=== PATIENT | female | born 1975 | race Asian ===

== ENCOUNTER 2017-06-06 20:38 | Emergency (ER) | payer SELFPAY ==
[~2017-06-06] VITALS: Ht 160 cm; Wt 80.4 kg
[~2017-06-06 20:38] MED LIST: PRENTAB26 PO
[2017-06-06 20:42] VITALS: TEMP 37.1; Ht 160 cm; Wt 80.4 kg
[2017-06-06] MEDS ORDERED: SODIUM CHLORIDE 0.9% 500ML 500 ML IV STA (20:52)
[2017-06-06] MEDS ORDERED: ACETAMINOPHEN 325 MG TAB PO STA (20:52)
[2017-06-06 21:19] LABS: BASO % 0.6 %; BASO ABS # 0.03 K/uL (0-0.2); EOS % 2.9 %; EOS ABS # 0.16 K/uL (0-0.5); HEMATOCRIT 37.8 % (37-47); HEMOGLOBIN 12.9 g/dL (12.0-16.0); LYMPH % 30.8 %; LYMPH ABS # 1.68 K/uL (1.2-3.4); MEAN CELL VOLUME 88.3 fL (80-100); MEAN CORPUSCULAR HEMOGLOBIN 30.1 pg (25-34); MEAN CORPUSCULAR HGB CONC 34.1 g/dl (32-36); MONO % 8.3 %; MONO ABS # 0.45 K/uL (0.11-0.59); NEUT % 57.4 %; NEUT ABS # 3.13 K/uL (1.4-6.5); PLATELET COUNT 149 K/uL (130-400); RED CELL DISTRIBUTION WIDTH SD 41.9 fL (36.4-46.3); WHITE BLOOD COUNT 5.45 K/uL (4.8-10.8)
[2017-06-06 21:35] LABS: ALBUMIN 3.6 gm/dl (3.4-5.0); CALCIUM 8.2 mg/dl (8.5-10.1); CREATININE 0.67 mg/dl (0.60-1.20); POTASSIUM 3.2 mmol/L (3.5-5.1)
[2017-06-06 21:38] LABS: TOTAL PROTEIN 6.7 gm/dl (6.4-8.2)
--- NOTE | 2017-06-06 22:16 | DIAGNOSTIC IMAGING REPORT ---
ECTOPIC CLINICAL HISTORY: 8 weeks . Vaginal bleeding. COMPARISON STUDY: No previous studies for comparison. TECHNIQUE: Transabdominal and transvaginal sonography of the pelvis was performed. FINDINGS: The uterus measures 10 x 6.7 x 6.3 cm. Endometrium measures 2.4 cm in thickness. Intrauterine gestational sac is noted with a mean sac diameter of 2.18 cm. This contains a yolk sac that measures 0.33 cm and a pole with a crown-rump length of 0.56 cm. This corresponds to an estimated gestational age of 6 weeks and 2 days. heart rate is normal at 130 bpm. Right ovary measures 2.4 x 2.3 x 1.9 cm and the left ovary measures 2.7 x 2.3 x 3.3 cm and contains a suspected 2 cm corpus luteal cyst. IMPRESSION: 1. Single viable intrauterine gestation with normal heart rate of 130 bpm. 2. Estimated gestational age of 6 weeks and 2 days on this exam. 3. Left ovarian corpus luteal cyst measuring 2 cm. Electronically signed by: Reynaldo Blanc M.D. 06/06/2017 10:15 PM Dictated Date/Time: 06/06/2017 10:12 PM
[2017-06-06 22:38] VITALS: BP 111/60; PULSE 73; O2SAT 98
--- NOTE | 2017-06-06 23:37 | EMERGENCY ROOM VISIT NOTE ---
History Report prepared by Nenita: Porfirio Pantoja Under the Supervision of: Dr. Wesley Robin M.D. First contact with patient: 20:46 Chief Complaint: ABDOMINAL PAIN Stated Complaint: BELLY PAIN, POSSIBLY RELATED TO EARLY History of Present Illness The patient is a 42 year old female who presents to the Emergency Room with complaints of constant abdominal pain starting this afternoon around 1600 this afternoon. She states that she pain is a sharp pain in the middle of her abdomen. The patient states that she is currently , and her last period was April 08. She denies any diarrhea, fever, vomiting, vaginal bleeding, and vaginal discharge. She states that she has been urinating normally recently. The patient has 4 children, and she has a history of an elective as well as an ectopic . She has no chronic medical problems. Source of History: patient, spouse/significant other Onset: 1600 Position: abdomen Quality: sharp Timing: constant Associated Symptoms: No fevers, No vomiting, No diarrhea Review of Systems See HPI for pertinent positives & negatives. A total of 10 systems reviewed and were otherwise negative. Past Medical & Surgical Medical Problems: (1) 33 weeks gestation of (2) Fall (3) Injury of sacrum (4) Personality disorder (5) Right groin hernia Surgical Problems: (1) Previous section (2) S/P repeat low transverse Family History Patient reports no known family medical history. Social History Smoking Status: Never Smoker Drug Use: none Marital Status: Housing Status: lives with family Current/Historical Medications Scheduled Multivit/Min/Iron/Fol Ac/Pren ( Vitamin), 1 TAB PO DAILY Allergies Coded Allergies: No Known Allergies (Verified , 06/06/17) Physical Exam Vital Signs Date Time Temp Pulse Resp B/P (MAP) Pulse Ox O2 Delivery O2 Flow Rate FiO2 06/06/17 22:38 73 18 111/60 98 06/06/17 20:42 37.1 86 18 103/71 98 Room Air Physical Exam Constitutional: Vital signs reviewed. Eyes: Pupils are equal round reactive to light. Conjunctiva are noninjected. ENT: Pharynx is clear without erythema or exudate. Mucous membranes are moist. Neck supple without meningeal signs. Respiratory: Clear to auscultation bilaterally. Breath sounds are equal bilaterally. Cardiovascular: Regular rate and rhythm. No rubs or gallops. GI: Suprapubic tenderness. No guarding. Soft, nondistended. Bowel sounds are present. Musculoskeletal: No peripheral edema. No lower extremity tenderness. Integumentary: No cyanosis. Neurological: The patient is awake and alert. No focal deficits. Psychiatric: Normal affect. Medical Decision & Procedures ER Provider Diagnostic Interpretation: Radiology results as stated below per my review and the radiologist's interpretation: ECTOPIC CLINICAL HISTORY: 8 weeks . Vaginal bleeding. COMPARISON STUDY: No previous studies for comparison. TECHNIQUE: Transabdominal and transvaginal sonography of the pelvis was performed. FINDINGS: The uterus measures 10 x 6.7 x 6.3 cm. Endometrium measures 2.4 cm in thickness. Intrauterine gestational sac is noted with a mean sac diameter of 2.18 cm. This contains a yolk sac that measures 0.33 cm and a pole with a crown-rump length of 0.56 cm. This corresponds to an estimated gestational age of 6 weeks and 2 days. heart rate is normal at 130 bpm. Right ovary measures 2.4 x 2.3 x 1.9 cm and the left ovary measures 2.7 x 2.3 x 3.3 cm and contains a suspected 2 cm corpus luteal cyst. IMPRESSION: 1. Single viable intrauterine gestation with normal heart rate of 130 bpm. 2. Estimated gestational age of 6 weeks and 2 days on this exam. 3. Left ovarian corpus luteal cyst measuring 2 cm. Electronically signed by: Reynaldo Blanc M.D. 06/06/2017 10:15 PM Dictated Date/Time: 06/06/2017 10:12 PM Laboratory Results 06/06/17 21:10 Red Blood Count 4.28, Mean Corpuscular Volume 88.3, Mean Corpuscular Hemoglobin 30.1, Mean Corpuscular Hemoglobin Concent 34.1, Mean Platelet Volume 10.0, Neutrophils (%) (Auto) 57.4, Lymphocytes (%) (Auto) 30.8, Monocytes (%) (Auto) 8.3, Eosinophils (%) (Auto) 2.9, Basophils (%) (Auto) 0.6, Neutrophils # (Auto) 3.13, Lymphocytes # (Auto) 1.68, Monocytes # (Auto) 0.45, Eosinophils # (Auto) 0.16, Basophils # (Auto) 0.03 06/06/17 21:10 Test 06/06/17 21:08 06/06/17 21:10 Urine Color YELLOW Urine Appearance CLEAR (CLEAR) Urine pH 6.5 (4.5-7.5) Urine Specific [place] 1.027 (1.000-1.030) Urine Protein NEG (NEG) Urine Glucose (UA) 1+ (NEG) Urine Ketones NEG (NEG) Urine Occult Blood NEG (NEG) Urine Nitrite NEG (NEG) Urine Bilirubin NEG (NEG) Urine Urobilinogen NEG (NEG) Urine Leukocyte Esterase SMALL (NEG) Urine WBC (Auto) 5-10 /hpf (0-5) Urine RBC (Auto) 0-4 /hpf (0-4) Urine Hyaline Casts (Auto) 1-5 /lpf (0-5) Urine Epithelial Cells (Auto) >30 /lpf (0-5) Urine Bacteria (Auto) NEG (NEG) White Blood Count 5.45 K/uL (4.8-10.8) Red Blood Count 4.28 M/uL (4.2-5.4) Hemoglobin 12.9 g/dL (12.0-16.0) Hematocrit 37.8 % (37-47) Mean Corpuscular Volume 88.3 fL (80-100) Mean Corpuscular Hemoglobin 30.1 pg (25-34) Mean Corpuscular Hemoglobin Concent 34.1 g/dl (32-36) Platelet Count 149 K/uL (130-400) Mean Platelet Volume 10.0 fL (7.4-10.4) Neutrophils (%) (Auto) 57.4 % Lymphocytes (%) (Auto) 30.8 % Monocytes (%) (Auto) 8.3 % Eosinophils (%) (Auto) 2.9 % Basophils (%) (Auto) 0.6 % Neutrophils # (Auto) 3.13 K/uL (1.4-6.5) Lymphocytes # (Auto) 1.68 K/uL (1.2-3.4) Monocytes # (Auto) 0.45 K/uL (0.11-0.59) Eosinophils # (Auto) 0.16 K/uL (0-0.5) Basophils # (Auto) 0.03 K/uL (0-0.2) RDW Standard Deviation 41.9 fL (36.4-46.3) RDW Coefficient of Variation 13.0 % (11.5-14.5) Immature Granulocyte % (Auto) 0.0 % Immature Granulocyte # (Auto) 0.00 K/uL (0.00-0.02) Anion Gap 8.0 mmol/L (3-11) Est Creatinine Clear Calc Drug Dose 110.9 ml/min Estimated GFR () 126.5 Estimated GFR (Non- 109.2 BUN/Creatinine Ratio 11.3 (10-20) Calcium Level 8.2 mg/dl (8.5-10.1) Total Bilirubin 0.6 mg/dl (0.2-1) Direct Bilirubin 0.2 mg/dl (0-0.2) Aspartate Amino Transf (AST/SGOT) 30 U/L (15-37) Alanine Aminotransferase (ALT/SGPT) 58 U/L (12-78) Alkaline Phosphatase 48 U/L (45-117) Total Protein 6.7 gm/dl (6.4-8.2) Albumin 3.6 gm/dl (3.4-5.0) Lipase 136 U/L (73-393) Human Chorionic Gonadotropin, Quant 56386 mIU/mL Laboratory results as reviewed by me. Medications Administered Medications (Trade) Dose Ordered Sig/Hanny Route Start Time Stop Time Status Last Admin Dose Admin Acetaminophen (Tylenol Tab) 650 mg NOW STAT PO 06/06/17 20:52 06/06/17 20:55 DC 06/06/17 21:09 650 MG Sodium Chloride 500 ml @ 999 mls/hr Q31M STAT IV 06/06/17 20:52 06/06/17 21:22 DC 06/06/17 21:10 999 MLS/HR ED Course 2045: The patient was evaluated in room C3. A complete history and physical exam was performed. 2051: Sodium Chloride 500 ml @ 999 mls/hr IV, Tylenol 650mg PO 2221: I reevaluated the patient and discussed her test results. She is going to follow up with OB tomorrow. She will be discharged home. Medical Decision This is a 42-year-old female who presents with lower abdominal pain. Differential diagnosis includes ectopic , UTI, appendicitis, ovarian cyst, kidney stone. I did perform a limited focused review of portions of the patient's old chart on the electronic medical record. The patient had an ectopic in September 2007 with a wedge resection of the right cornua. I did evaluate the patient as noted above. The patient is approximately 8 weeks . She complains of lower abdominal pain and this tenderness of the suprapubic region. She has no tenderness to right lower quadrant. She has no peritoneal signs. IV access was established. Her blood type is O+. I did order and personally review the patient's urine analysis as described above. I did order and review the patient's blood work as noted in the electronic medical record. Her white blood cell count is not elevated. I did order an ultrasound of the pelvis. I did review the images myself as well as the radiology report as described above. She has a 6 week IUP with a heart rate of 130. I did discuss the test results with the patient and her . She was advised to follow-up tomorrow with her doctor per her appointment. She was given return instructions as outlined below and discharged in good condition. Medication Reconcilliation Current Medication List: was personally reviewed by me Blood Pressure Screening Patient's blood pressure: Normal blood pressure Impression Primary Impression: Abdominal pain during in first trimester Scribe Attestation The scribe's documentation has been prepared under my direct and personally reviewed by me in its entirety. I confirm that the note above accurately reflects all work, treatment, procedures, and medical decision making performed by me. Departure Information Dispostion Home / Self-Care Referrals No Doctor, Assigned (PCP) Forms Call Back Authorization, HOME CARE DOCUMENTATION FORM, IMPORTANT VISIT INFORMATION Patient Instructions ED Abdominal Pain Unkn Cause, My [facility] Additional Instructions You have been examined and treated today on an emergency basis only. This is not a substitute for, or an effort to provide, complete comprehensive medical care. It is impossible to recognize and treat all injuries or illnesses in a single emergency department visit. It is therefore important that you follow up closely with your physician tomorrow per your appointment. Return for worsening symptoms or if you develop fever, vomiting, movement of pain to the right lower abdomen or any other concerning symptoms.
== END 2017-06-06 22:39 | disposition home or self-care (01) ==
LOC: C.EDB 20:40 → C.EDC 22:39
DX: O99.89 Other specified diseases and conditions complicating pregnancy, childbirth and the puerperium (principal); R10.30 Lower abdominal pain, unspecified; Z3A.01 Less than 8 weeks gestation of pregnancy

== ENCOUNTER 2023-06-11 22:24 | Inpatient (IN) ==
[2023-06-12 00:05] LABS: Basophils # (auto) 0.03 K/uL (0.00-0.20); Basophils % (auto) 0.5 %; Eosinophils # (auto) 0.21 K/uL (0.00-0.50); Eosinophils % (auto) 3.7 %; Hematocrit (blood only) 36.1 % (37.0-47.0); Hemoglobin 12.4 g/dl (12.0-16.0); Immature Granulocytes # (auto) 0.01 K/uL (0.01-0.20); Immature Granulocytes % (auto) 0.2 %; Lymphocytes # (auto) 1.91 K/uL (1.20-3.40); Mean Corpuscular Hemoglobin 30.7 pg (25.0-34.0); Mean Corpuscular Hgb Conc 34.3 g/dL (32.0-36.0); Mean Corpuscular Volume 89.4 fL (80.0-100.0); Mean Platelet Volume 10.8 fL (9.4-12.4); Monocytes # (auto) 0.38 K/uL (0.11-0.59); Monocytes % (auto) 6.8 %; Neutrophils # (auto) 3.08 K/uL (1.40-6.50); Neutrophils % (auto) 54.8 %; Platelet Count 163 K/uL (130-400); RDW Coefficient of Variation 12.8 % (11.5-14.5); Red Blood Count 4.04 M/uL (4.20-5.40); White Blood Count 5.62 K/ul (4.8-10.8)
[2023-06-12] MEDS: OPTIRAY 320 500ml IV ONE (00:16)
[2023-06-12 00:21] LABS: Albumin Globulin Ratio 1.6 (0.9-2); Albumin Level 4.3 gm/dl (3.4-5.0); BUN Creatinine Ratio 19.4 (10-20); Bilirubin,Total 0.6 mg/dl (0.2-1.0); C Reactive Protein 1.04 mg/dl (0-0.5); Calcium 8.8 mg/dl (8.6-10.3); Creatinine Clr Calc Pharmacy 115.4 ml/min; Est GFR (African American) 124.5 ml/min; Est GFR (Non-African American) 107.4 ml/min; Globulin 2.7 gm/dl (2.5-4.0); Magnesium 2.1 mg/dl (1.7-2.4); Potassium 3.8 mmol/L (3.5-5.1)
[2023-06-12] MEDS: SODIUM CHLORIDE 0.9% 1,000 ML IV ONE (00:21)
--- NOTE | 2023-06-12 01:19 | CT Scan Report ---
Exam(s): CT FACIAL With Contrast IV Amt: 90 ML EXAM: CT Head and Maxillofacial With Intravenous Contrast CLINICAL HISTORY: Reason for exam: left periorbital/supraorbital edema/erythema. TECHNIQUE: Axial computed tomography images of the head/brain and face with intravenous contrast. CTDI is 36.26 mGy and DLP is 619.22 mGy-cm. Automated exposure control was utilized for the study. A dose lowering technique was utilized adhering to the principles of ALARA. CONTRAST: Patient received 90 ML of IV contrast COMPARISON: No relevant prior studies available. FINDINGS: Brain: Unremarkable. No hemorrhage. No edema. Normal enhancement. Ventricles: Unremarkable. No ventriculomegaly. Bones/joints: No acute fracture. Soft tissues: Prominent cervical lymph nodes. Sinuses: Unremarkable as visualized. No acute sinusitis. Mastoid air cells: Unremarkable as visualized. No mastoid effusion. Orbits: There is moderate left periorbital edema and subcutaneous fat stranding primarily within the preseptal soft tissues. There is mild post septal soft tissue fat stranding in the left orbit. IMPRESSION: Moderate left periorbital edema and subcutaneous fat stranding without evidence of abscess or fluid collection. There is mild post septal fat stranding. Electronically signed by: Mely Patton MD 06/12/23 01:17 AM
--- NOTE | 2023-06-12 02:12 | Emergency Department Note ---
Impression & Plan Preseptal cellulitis of left eye, Cellulitis of face ED Provider Note CHIEF COMPLAINT: Left-sided facial swelling, pain HISTORY OF PRESENT ILLNESS: This 48 year old female patient presents to the emergency department via private vehicle for evaluation of left-sided facial swelling and pain. Symptoms started about 3 to 4 days ago. The patient reports the color has been darkening. She denies any discharge from the eye. She denies any vision problems or complications. She denies any recent fever or illness. No congestion, runny nose, sore throat. No headache, dizziness, nausea or vomiting. No history of similar symptoms. The patient does not wear glasses or contacts. REVIEW OF SYSTEMS: A 10 system review of systems was performed with positives and pertinent negatives listed in the history of present illness. All other systems were reviewed and are negative. ALLERGIES: NKDA PHYSICAL EXAM: VITALS: Vitals are noted on the nurse's note and reviewed by myself. Vital signs stable. GENERAL: This is a 48 year old female, in no acute distress, nondiaphoretic, well-developed well-nourished. SKIN: Periorbital edema and erythema on the left side. This is supraorbital as well. There is no warmth to the skin. The skin was without rashes, erythema, edema, or bruising. There is no tenting of the skin. Capillary refill less than 2 seconds. HEAD: Normocephalic atraumatic. EARS: External auditory canals clear, tympanic membranes pearly thomas without erythema or effusion bilaterally. No hemotympanum. Negative sher sign EYES: Pupils equal round and reactive to light and accommodation. Conjunctivae without injection, sclerae without icterus. Extraocular movements intact. NOSE: Patent, turbinates without inflammation or discharge. No sinus tenderness. MOUTH: Mucous membranes moist. Tonsils are not enlarged. Pharynx without erythema or exudate. Uvula midline. Airway patent. Tongue does not deviate. NECK: Supple without nuchal rigidity. No lymphadenopathy. Cervical spine is nontender. No JVD. HEART: Regular rate and rhythm without murmurs gallops or rubs. LUNGS: Clear to auscultation bilaterally without wheezes, rales or rhonchi. No retractions or accessory muscle use. ABDOMEN: Positive bowel sounds x 4. Soft, nontender, without masses or organomegaly. Gaspar sign negative. No guarding or rebound tenderness. MUSCULOSKELETAL: No muscle atrophy, erythema, or edema noted. Full range of motion without joint tenderness in all extremities. No tenderness to palpation. Normal gait. Strength 5/5 throughout. NEURO: Patient was alert and oriented to person place and time. No focal neurological deficits. Imaging as interpreted by myself and the radiologist revealed left periorbital and facial cellulitis, with radiologist interpretation as above. I agree with the radiologist's findings as based upon my independent interpretation. EMERGENCY DEPARTMENT COURSE: The patient was seen and evaluated as above. The patient presents with left periorbital and facial redness, swelling, and tenderness. This came on suddenly over the past few days. Initial concern was for preseptal or septal cellulitis. I did recommend labs and imaging. The patient was agreeable. IV access was obtained, labs were drawn. Patient was medicated with IV fluids. Visual acuity 20/50 R, 20/70 L. Labs reviewed. No leukocytosis, anemia, thrombocytopenia. Renal, hepatic function and electrolytes without significant abnormality. C-reactive protein 1.04. Procalcitonin less than 0.02. Lactic acid 1.4. Blood cultures are pending. CT imaging of the facial bones with IV contrast was completed and was concerning for moderate left periorbital edema and subcutaneous fat stranding without evidence of abscess or fluid collection. There is mild postseptal fat stranding. I discussed the case with Dr. Lemos, [facility] hospitalist physician. We reviewed the imaging and radiology report of CT scan, Dr. Lemos requested an MRI of the orbits to evaluate for true orbital involvement versus periorbital infection. The patient was medicated with IV vancomycin, fluids, and ceftriaxone. MRI of the orbits with and without IV contrast was ordered. This was reviewed by myself and radiologist as noted. I consistent with periorbital and facial cellulitis, no evidence of orbital involvement. I again discussed case with Dr. Lemos. He did agree to see and evaluate the patient for admission. Please see hospitalist dictation regarding ongoing management care of this patient. I attest that I have personally reviewed the patient medication list. I attest that I have reviewed the patient's blood pressure and it was found to be normotensive GCS: 15 In the evaluation and treatment of this patient the following differential diagnoses were entertained: facial cellulitis, periorbital cellulitis, orbital cellulitis, abscess, malignancy, among others The chart was completed utilizing [employer] Speech voice recognition software. Grammatical errors, random word insertions, pronoun errors, and incomplete sentences are an occasional consequence of this system due to software limitations, ambient noise, and hardware issues. Any formal questions or concerns about the content, text, or information contained within the body of this dictation should be directly addressed to the provider for clarification. Past Med/Surg History Medical History (Updated 06/12/23 @ 06:20 by Alla See PA-C) History of depression Encounter for pre-operative examination GERD (gastroesophageal reflux disease) On occasion Normal labor , ectopic, cornual or cervical Right groin hernia Personality disorder Surgical History Status post section routine follow-up History of section X4 Social History Smoking Status: Never smoker Second Hand Exposure: No; Do You Dip or Chew Tobacco: No; Hx Alcohol Use: No Hx Substance Use: No Preferred Language: Voxel Grenadian Communication Ability: Effective Animal Physiologist Required: No Beliefs That Will Affect Care: None marital status: Current Living Situation: Spouse How many Children do You have: 5 Feels Safe at Home: Yes Assistive Devices: None Allergies Allergies Allergy/AdvReac Type Severity Reaction Status Date / Time No Known Drug Allergies Allergy Verified 01/10/19 14:44 Home Meds Home Medications Medication Instructions Recorded Confirmed prenat.vits,soni,uhq-irsr-nhabj 1 tab PO DAILY 12/16/18 12/16/18 Previous Rx's Medication Instructions Recorded amoxicillin 875 mg-potassium 1 tab PO BID #20 tabs 11/30/19 clavulanate 125 mg tablet (Augmentin) Results & Data (ED) Vital Signs Vital Signs - 24 hr 06/11/23 22:27 06/12/23 00:45 06/12/23 02:00 Temperature 37.2 C Temperature Source Temporal Artery Scan Pulse Rate 74 Pulse Rate [Finger] 72 76 Pulse Rhythm [Finger] Regular Regular Pulse Strength [Finger] Normal Normal Respiratory Rate 18 18 20 Respiratory Effort / Characteristics Non-Labored Spontaneous Non-Labored Spontaneous Non-Labored Spontaneous Respiratory Depth Normal Normal Normal Respiratory Pattern Regular Regular Blood Pressure 118/81 Blood Pressure [Right Arm] 111/74 104/79 Blood Pressure Mean 93 Blood Pressure Mean [Right Arm] 86 87 Blood Pressure Position [Right Arm] Lying Pulse Oximetry 96 95 93 Oxygen Delivery Method Room Air Room Air Room Air Sepsis Recent Fever Within 48 Hours No Sepsis New/Unexplained Change in Mental Status No Sepsis Action Taken by Nursing No Action Required 06/12/23 04:20 06/12/23 05:00 06/12/23 06:00 Temperature Temperature Source Pulse Rate Pulse Rate [Finger] 71 69 71 Pulse Rhythm [Finger] Pulse Strength [Finger] Respiratory Rate 17 16 16 Respiratory Effort / Characteristics Respiratory Depth Respiratory Pattern Blood Pressure Blood Pressure [Right Arm] 113/76 124/79 96/68 L Blood Pressure Mean Blood Pressure Mean [Right Arm] 88 94 77 Blood Pressure Position [Right Arm] Pulse Oximetry 95 96 96 Oxygen Delivery Method Room Air Room Air Room Air Sepsis Recent Fever Within 48 Hours Sepsis New/Unexplained Change in Mental Status Sepsis Action Taken by Nursing Laboratory Data 06/11/23 23:46 06/11/23 23:46 Lab Results 06/11/23 06/11/23 Range/Units 23:46 23:50 WBC 5.62 (4.8-10.8) K/ul RBC 4.04 L (4.20-5.40) M/uL Hgb 12.4 (12.0-16.0) g/dl Hct 36.1 L (37.0-47.0) % MCV 89.4 (80.0-100.0) fL MCH 30.7 (25.0-34.0) pg MCHC 34.3 (32.0-36.0) g/dL RDW Std Deviation 42.0 (36.4-46.3) fL RDW Coeff of Gideon 12.8 (11.5-14.5) % Plt Count 163 (130-400) K/uL MPV 10.8 (9.4-12.4) fL Immature Gran % (Auto) 0.2 % Neut % (Auto) 54.8 % Lymph % (Auto) 34.0 % [place] % (Auto) 6.8 % Eos % (Auto) 3.7 % Baso % (Auto) 0.5 % Neut # (Auto) 3.08 (1.40-6.50) K/uL Lymph # (Auto) 1.91 (1.20-3.40) K/uL [place] # (Auto) 0.38 (0.11-0.59) K/uL Eos # (Auto) 0.21 (0.00-0.50) K/uL Baso # (Auto) 0.03 (0.00-0.20) K/uL Immature Gran # (Auto) 0.01 (0.01-0.20) K/uL ESR 11 (0-20) mm/hr Sodium 139 (136-145) mmol/L Potassium 3.8 (3.5-5.1) mmol/L Chloride 107 (98-107) mmol/L Carbon Dioxide 24 (21-32) mmol/L Anion Gap 8 (3-11) BUN 12 (6-23) mg/dl Creatinine 0.62 (0.6-1.2) mg/dl Est Cr Clr Drug Dosing 115.4 ml/min Est GFR ( Amer) 124.5 ml/min Est GFR (Non-Af Amer) 107.4 ml/min BUN/Creatinine Ratio 19.4 (10-20) Glucose 103 H (70-99(Fasting)) mg/dl Lactate 1.4 (0.4-2.0) mmol/L Calcium 8.8 (8.6-10.3) mg/dl Magnesium 2.1 (1.7-2.4) mg/dl Total Bilirubin 0.6 (0.2-1.0) mg/dl AST 20 (13-39) U/L ALT 23 (7-52) U/L Alkaline Phosphatase 46 (34-104) U/L C-Reactive Protein 1.04 H (0-0.5) mg/dl Total Protein 7.0 (6.0-8.3) gm/dl Albumin 4.3 (3.4-5.0) gm/dl Globulin 2.7 (2.5-4.0) gm/dl Albumin/Globulin Ratio 1.6 (0.9-2) Procalcitonin < 0.02 (0-0.5) ng/ml Administered Medications Discontinued Medications Gadobutrol (Gadobutrol 30ml Vial) 8.5 ml IV ONCE ONE Stop: 06/12/23 04:00 Last Admin: 06/12/23 03:57 Dose: 8.5 ml Documented By: DONYA Sodium Chloride (Nss) 1,000 mls @ 999 mls/hr IV .Q1H1M ONE Stop: 06/12/23 00:36 Last Infusion: 06/12/23 01:22 Dose: Infused Documented By: Admin: 06/12/23 00:21 Dose: 999 mls/hr Documented By: NATALI Vancomycin HCl 2,000 mg/ (Sodium Chloride) 540 mls @ 200 mls/hr IV NOW ONE Stop: 06/12/23 05:03 Last Admin: 06/12/23 04:15 Dose: 200 mls/hr Documented By: HALEY Ceftriaxone Sodium (Rocephin) 2,000 mg in 50 mls @ 100 mls/hr IV NOW STA Stop: 06/12/23 02:51 Last Infusion: 06/12/23 03:06 Dose: Infused Documented By: Admin: 06/12/23 02:31 Dose: 100 mls/hr Documented By: NATALI Ioversol (Optiray 320 500ml) 90 ml IV ONCE ONE Stop: 06/12/23 00:21 Last Admin: 06/12/23 00:16 Dose: 90 ml Documented By: GEE Imaging Data Radiologist's Impression: Face CT 06/11/23 23:36 Exam(s): CT FACIAL With Contrast IV Amt: 90 ML EXAM: CT Head and Maxillofacial With Intravenous Contrast CLINICAL HISTORY: Reason for exam: left periorbital/supraorbital edema/erythema. TECHNIQUE: Axial computed tomography images of the head/brain and face with intravenous contrast. CTDI is 36.26 mGy and DLP is 619.22 mGy-cm. Automated exposure control was utilized for the study. A dose lowering technique was utilized adhering to the principles of ALARA. CONTRAST: Patient received 90 ML of IV contrast COMPARISON: No relevant prior studies available. FINDINGS: Brain: Unremarkable. No hemorrhage. No edema. Normal enhancement. Ventricles: Unremarkable. No ventriculomegaly. Bones/joints: No acute fracture. Soft tissues: Prominent cervical lymph nodes. Sinuses: Unremarkable as visualized. No acute sinusitis. Mastoid air cells: Unremarkable as visualized. No mastoid effusion. Orbits: There is moderate left periorbital edema and subcutaneous fat stranding primarily within the preseptal soft tissues. There is mild post septal soft tissue fat stranding in the left orbit. IMPRESSION: Moderate left periorbital edema and subcutaneous fat stranding without evidence of abscess or fluid collection. There is mild post septal fat stranding. Electronically signed by: Mely Patton MD 06/12/23 01:17 AM Orbit MRI 06/12/23 01:41 Exam(s): MRI ORBITS IV Amt: 8.5ml gadavist EXAM: MR Orbits With Intravenous Contrast CLINICAL HISTORY: Left periorbital edema, post-septal edema. TECHNIQUE: Multiplanar magnetic resonance images of the orbits with intravenous contrast. CONTRAST: Patient received 8.5ml gadavist of IV contrast COMPARISON: CT facial bones 06/12/2023. FINDINGS: Redemonstrated left frontal and periorbital subcutaneous soft tissue swelling and edema with enhancement. Preseptal soft tissue swelling and enhancement. No evidence for intraorbital edema/soft tissue swelling and enhancement. The left globe and extraocular muscles are intact. The extraconal retroconal fat is intact. The optic nerve and optic nerve sheath complex are unremarkable without abnormal normal enhancement or edema. Optic chiasm is unremarkable. No intraorbital mass or vascularity is present. Right orbit is unremarkable. Paranasal sinuses are clear. Limited images of the cranial contents demonstrates a partially empty sella. IMPRESSION: Left frontal supraorbital soft tissue swelling and edema. Preseptal soft tissue swelling/inflammation without evidence for intraorbital involvement. Electronically signed by: Garo Reed M.D. 06/12/23 05:49 AM Discharge Plan Visit Data Chief Complaint: Facial Injury/Pain Stated Complaint: FACIAL PAIN/SWELLING ED Provider: [facility] Midlevel Provider: Alla See Discharge Problem: Preseptal cellulitis of left eye, Cellulitis of face Patient Disposition: Admitted As Inpatient Forms Stand Alone Forms: [facility] Prescriptions Prescriptions: No Action prenat.vits,soni,[id number] tablet 1 tab PO DAILY amoxicillin-pot clavulanate [Augmentin] 875-125 mg tablet 1 tab PO BID Qty: 20 0RF Referrals Referrals: Kerrie Bolton [Primary Care Provider] -
[2023-06-12] MEDS ORDERED: VANCOMYCIN CONSULT ACTIVE PRN (02:22)
[2023-06-12] MEDS: cefTRIAXone SODIUM 2,000 MG/50 ML BAG IV STA (02:31)
[2023-06-12] MEDS: GADOBUTROL 30ML VIAL IV ONE (03:57)
[2023-06-12] MEDS: VANCOMYCIN HCL 2,000 MG in SODIUM CHLORIDE 0.9% 500 ML IV ONE (04:15)
--- NOTE | 2023-06-12 05:49 | Magnetic Resonance Report ---
Exam(s): MRI ORBITS IV Amt: 8.5ml gadavist EXAM: MR Orbits With Intravenous Contrast CLINICAL HISTORY: Left periorbital edema, post-septal edema. TECHNIQUE: Multiplanar magnetic resonance images of the orbits with intravenous contrast. CONTRAST: Patient received 8.5ml gadavist of IV contrast COMPARISON: CT facial bones 06/12/2023. FINDINGS: Redemonstrated left frontal and periorbital subcutaneous soft tissue swelling and edema with enhancement. Preseptal soft tissue swelling and enhancement. No evidence for intraorbital edema/soft tissue swelling and enhancement. The left globe and extraocular muscles are intact. The extraconal retroconal fat is intact. The optic nerve and optic nerve sheath complex are unremarkable without abnormal normal enhancement or edema. Optic chiasm is unremarkable. No intraorbital mass or vascularity is present. Right orbit is unremarkable. Paranasal sinuses are clear. Limited images of the cranial contents demonstrates a partially empty sella. IMPRESSION: Left frontal supraorbital soft tissue swelling and edema. Preseptal soft tissue swelling/inflammation without evidence for intraorbital involvement. Electronically signed by: Garo Reed M.D. 06/12/23 05:49 AM
--- NOTE | 2023-06-12 05:57 | History & Physical Report ---
Date of Service June 12, 2023 Assessment & Plan (1) Cellulitis of face: (2) Preseptal cellulitis of left eye: Plan Preseptal Cellulitis of Left Eye -CT: Moderate left periorbital edema and subcutaneous fat stranding without evidence of abscess or fluid collection. There is mild post septal fat stranding. -MRI: Left frontal supraorbital soft tissue swelling and edema. Preseptal soft tissue swelling/inflammation without evidence for intraorbital involvement. -Received vancomycin, Ceftriaxone in ED. Will continue vanc/ceftriaxone on admission -Ordered methylprednisolone -Tylenol PRN for pain control -No elevated WBC, afebrile. Will repeat CBC in a.m. Admit to medical VTE prophylaxis: Lovenox Diet: Regular Code Status: Full code History of Present Illness Primary Care Provider: Alvaromarissameek Yates is a 48 year-old female without significant past medical history who presents to the ER for concern of left sided facial swelling and pain. She notes that she has had two days of pain above her left eyebrow, notes that she decided to go to the ED because her eyelid had swollen shut. She endorses pain with palpation above the left eyebrow, denies blurry vision or double vision, denies pain with eye movement, denies abdominal pain/nausea/vomiting/shortness of breath/body aches/chills/fever. She states she takes no prescription medications. Her son is present during encounter, translates some questions for the patient. ED Course: -CT, MRI of orbit -1x Ceftriaxone, Vancomycin Allergies Allergy/AdvReac Type Severity Reaction Status Date / Time No Known Drug Allergies Allergy Verified 01/10/19 14:44 Home Medications Medication Instructions Recorded Confirmed Type amoxicillin 875 mg-potassium 1 tab PO BID 7 days #14 tabs 06/12/23 Rx clavulanate 125 mg tablet Past Med/Surg History Medical History (Updated 06/12/23 @ 06:20 by Alla See PA-C) History of depression Encounter for pre-operative examination GERD (gastroesophageal reflux disease) On occasion Normal labor , ectopic, cornual or cervical Right groin hernia Personality disorder Surgical History Status post section routine follow-up History of section X4 Social History Smoking Status: Never smoker Second Hand Exposure: No; Do You Dip or Chew Tobacco: No; Hx Alcohol Use: No Hx Substance Use: No Preferred Language: Mandarin Northern Irish Communication Ability: Effective Manager System Required: Yes Beliefs That Will Affect Care: None marital status: Current Living Situation: Spouse and Family How many Children do You have: 5 Feels Safe at Home: Yes Assistive Devices: None Review of Systems Review of Systems: As per above Physical Exam Constitutional: WD/WN, vitals as above Eyes: + anicteric sclerae and PERRL; no conjun ctival abnormality Mild edema noted surrounding left eyelid, no erythema noted of surrounding skin ENMT: Ears: no external ear abnormality Nose: no external nose abnormality Moist mucous membranes Neck: No cervical lymphadenopathy Respiratory: normal respiratory effort, lungs clear to auscultation Cardiovascular: RRR, no murmur, no edema Gastrointestinal (Abdomen): normal bowel sounds, soft, nontender, no hepatosplenomegaly Skin: no rashes, warm and dry Psychiatric: A+Ox3, euthymic affect Results & Data Results & Data Vital Signs (Past 12 Hours) Vital Signs Temp Pulse Pulse Resp BP BP Pulse Ox 06/12/23 05:00 69 16 124/79 96 06/12/23 04:20 71 17 113/76 95 06/12/23 02:00 76 20 104/79 93 06/12/23 00:45 72 18 111/74 95 06/11/23 22:27 37.2 C 74 18 118/81 96 O2 Del Method 06/12/23 05:00 Room Air 06/12/23 04:20 Room Air 06/12/23 02:00 Room Air 06/12/23 00:45 Room Air 06/11/23 22:27 Room Air Diagnostic Findings Face CT 06/11/23 23:36 Exam(s): CT FACIAL With Contrast IV Amt: 90 ML EXAM: CT Head and Maxillofacial With Intravenous Contrast CLINICAL HISTORY: Reason for exam: left periorbital/supraorbital edema/erythema. TECHNIQUE: Axial computed tomography images of the head/brain and face with intravenous contrast. CTDI is 36.26 mGy and DLP is 619.22 mGy-cm. Automated exposure control was utilized for the study. A dose lowering technique was utilized adhering to the principles of ALARA. CONTRAST: Patient received 90 ML of IV contrast COMPARISON: No relevant prior studies available. FINDINGS: Brain: Unremarkable. No hemorrhage. No edema. Normal enhancement. Ventricles: Unremarkable. No ventriculomegaly. Bones/joints: No acute fracture. Soft tissues: Prominent cervical lymph nodes. Sinuses: Unremarkable as visualized. No acute sinusitis. Mastoid air cells: Unremarkable as visualized. No mastoid effusion. Orbits: There is moderate left periorbital edema and subcutaneous fat stranding primarily within the preseptal soft tissues. There is mild post septal soft tissue fat stranding in the left orbit. IMPRESSION: Moderate left periorbital edema and subcutaneous fat stranding without evidence of abscess or fluid collection. There is mild post septal fat stranding. Electronically signed by: Mely Patton MD 06/12/23 01:17 AM Orbit MRI 06/12/23 01:41 Exam(s): MRI ORBITS IV Amt: 8.5ml gadavist EXAM: MR Orbits With Intravenous Contrast CLINICAL HISTORY: Left periorbital edema, post-septal edema. TECHNIQUE: Multiplanar magnetic resonance images of the orbits with intravenous contrast. CONTRAST: Patient received 8.5ml gadavist of IV contrast COMPARISON: CT facial bones 06/12/2023. FINDINGS: Redemonstrated left frontal and periorbital subcutaneous soft tissue swelling and edema with enhancement. Preseptal soft tissue swelling and enhancement. No evidence for intraorbital edema/soft tissue swelling and enhancement. The left globe and extraocular muscles are intact. The extraconal retroconal fat is intact. The optic nerve and optic nerve sheath complex are unremarkable without abnormal normal enhancement or edema. Optic chiasm is unremarkable. No intraorbital mass or vascularity is present. Right orbit is unremarkable. Paranasal sinuses are clear. Limited images of the cranial contents demonstrates a partially empty sella. IMPRESSION: Left frontal supraorbital soft tissue swelling and edema. Preseptal soft tissue swelling/inflammation without evidence for intraorbital involvement. Electronically signed by: Garo Reed M.D. 06/12/23 05:49 AM Supervising Physician Co-Signing Physician Notes Attending addendum: I have physically seen this patient, have supervised the medical residents activities, and agree with the H&P unless as otherwise noted. Assessment and Plan: Preseptal/facial cellulitis- CT scan initially with concern for possible orbital cellulitis MRI orbits negative for orbital cellulitis- Continue vancomycin IV and ceftriaxone IV as recommended to the ED Acetaminophen 650 mg by mouth every 4 hours as needed for mild pain or fever Status post 1 L normal saline in the ED Resident Activity Tracking Resident Involvement: Resident Care Provided Care Provided: Adult Hospital Medicine
[2023-06-12 07:09] LABS: iSTAT Creatinine 0.6 mg/dl (0.6-1.3); iSTAT Hemoglobin 11.9 g/dl (12.0-16.0); iSTAT Ionized Calcium 1.14 mmol/l (1.12-1.32); iSTAT Potassium 3.7 mmol/L (3.3-5.0)
--- NOTE | 2023-06-12 07:30 | Hospitalist Progress Note ---
Date of Service June 12, 2023 Assessment & Plan (1) Cellulitis of face: Plan: 48 yo female without significant past medical history who presents to the ER for concern of left sided facial swelling and pain. Preseptal Cellulitis of Left Eye -CT: Moderate left periorbital edema and subcutaneous fat stranding without evidence of abscess or fluid collection. There is mild post septal fat stranding. -MRI: Left frontal supraorbital soft tissue swelling and edema. Preseptal soft tissue swelling/inflammation without evidence for intraorbital involvement. -Received vancomycin, Ceftriaxone in ED. Will continue these. Blood cx pending. -Ordered methylprednisolone -Tylenol PRN for pain control DVT ppx: lovenox FEN/GI: regular Code Status: full Dispo: med surg (2) Preseptal cellulitis of left eye: Subjective Patient seen at bedside. Review of Systems Review of Systems: All systems reviewed & are unremarkable except as noted in HPI & below Physical Exam Physical Exam: Constitutional: Well-developed, well-nourished patient, in no acute distress, pleasant and normal affect, intact memory. Vitals as above. HEENT: No scleral injection or discharge. Moist mucous membranes. Clear oropharynx. No exudate. No lesions. Tympanic membranes are clear bilaterally. Neck: Supple without lymphadenopathy or thyromegaly. Trachea midline. Lungs: Clear to auscultation bilaterally with good effort. Cardiac: Regular rate and rhythm. No murmurs. No extremity edema. Pulses? Abdomen: Bowel sounds present. Soft, nontender, and nondistended.No guarding. No masses. No hepatosplenomegaly. MSK: No cyanosis or clubbing. Extremities motor strength 5/5. Skin: No rashes, warm, dry. Neurologic: Grossly intact cranial nerves and 2+ patellar tendon reflexes bilaterally. PERRL. Results & Data Results & Data Vital Signs (Past 12 Hours) Vital Signs Temp Pulse Pulse Resp BP BP Pulse Ox 06/12/23 06:30 79 16 109/77 97 06/12/23 06:00 71 16 96/68 L 96 06/12/23 05:00 69 16 124/79 96 06/12/23 04:20 71 17 113/76 95 06/12/23 02:00 76 20 104/79 93 06/12/23 00:45 72 18 111/74 95 06/11/23 22:27 37.2 C 74 18 118/81 96 O2 Del Method 06/12/23 06:30 Room Air 06/12/23 06:00 Room Air 06/12/23 05:00 Room Air 06/12/23 04:20 Room Air 06/12/23 02:00 Room Air 06/12/23 00:45 Room Air 06/11/23 22:27 Room Air Laboratory Results 06/12/23 06/11/23 06/11/23 Range/Units 00:01 23:50 23:46 WBC 5.62 (4.8-10.8) K/ul RBC 4.04 L (4.20-5.40) M/uL Hgb 12.4 (12.0-16.0) g/dl POC Hgb 11.9 L (12.0-16.0) g/dl Hct 36.1 L (37.0-47.0) % POC Hct 35 L (37-47) % MCV 89.4 (80.0-100.0) fL MCH 30.7 (25.0-34.0) pg MCHC 34.3 (32.0-36.0) g/dL RDW Std Deviation 42.0 (36.4-46.3) fL RDW Coeff of Gideon 12.8 (11.5-14.5) % Plt Count 163 (130-400) K/uL MPV 10.8 (9.4-12.4) fL Immature Gran % (Auto) 0.2 % Neut % (Auto) 54.8 % Lymph % (Auto) 34.0 % [place] % (Auto) 6.8 % Eos % (Auto) 3.7 % Baso % (Auto) 0.5 % Neut # (Auto) 3.08 (1.40-6.50) K/uL Lymph # (Auto) 1.91 (1.20-3.40) K/uL [place] # (Auto) 0.38 (0.11-0.59) K/uL Eos # (Auto) 0.21 (0.00-0.50) K/uL Baso # (Auto) 0.03 (0.00-0.20) K/uL Immature Gran # (Auto) 0.01 (0.01-0.20) K/uL ESR 11 (0-20) mm/hr POC Sodium 142 (135-144) mmol/L Sodium 139 (136-145) mmol/L POC Potassium 3.7 (3.3-5.0) mmol/L Potassium 3.8 (3.5-5.1) mmol/L POC Chloride 105 (101-112) mmol/L Chloride 107 (98-107) mmol/L Carbon Dioxide 24 (21-32) mmol/L POC Total CO2 23 L (24-31) mmol/L Anion Gap 8 (3-11) POC Anion Gap 18.0 (16-25) mmol/L POC BUN 11 (7-18) mg/dl BUN 12 (6-23) mg/dl Creatinine 0.62 (0.6-1.2) mg/dl POC Creatinine 0.6 (0.6-1.3) mg/dl Est Cr Clr Drug Dosing 115.4 ml/min Est GFR ( Amer) 124.5 ml/min Est GFR (Non-Af Amer) 107.4 ml/min BUN/Creatinine Ratio 19.4 (10-20) Glucose 103 H (70-99(Fasting)) mg/dl POC Glucose (other) 104 H (70-99) mg/dl Lactate 1.4 (0.4-2.0) mmol/L Calcium 8.8 (8.6-10.3) mg/dl POC Ioniz Calcium Peña 1.14 (1.12-1.32) mmol/l Magnesium 2.1 (1.7-2.4) mg/dl Total Bilirubin 0.6 (0.2-1.0) mg/dl AST 20 (13-39) U/L ALT 23 (7-52) U/L Alkaline Phosphatase 46 (34-104) U/L C-Reactive Protein 1.04 H (0-0.5) mg/dl Total Protein 7.0 (6.0-8.3) gm/dl Albumin 4.3 (3.4-5.0) gm/dl Globulin 2.7 (2.5-4.0) gm/dl Albumin/Globulin Ratio 1.6 (0.9-2) Procalcitonin < 0.02 (0-0.5) ng/ml
[2023-06-12] MEDS ORDERED: ACETAMINOPHEN 325 MG TAB PO PRN (07:45)
[2023-06-12 08:28] LABS: Basophils # (auto) 0.03 K/uL (0.00-0.20); Basophils % (auto) 0.6 %; Hematocrit (blood only) 35.2 % (37.0-47.0); Hemoglobin 11.7 g/dl (12.0-16.0); Immature Granulocytes # (auto) 0.01 K/uL (0.01-0.20); Immature Granulocytes % (auto) 0.2 %; Lymphocytes # (auto) 1.59 K/uL (1.20-3.40); Lymphocytes % (auto) 31.9 %; Mean Corpuscular Hemoglobin 30.5 pg (25.0-34.0); Mean Corpuscular Hgb Conc 33.2 g/dL (32.0-36.0); Mean Corpuscular Volume 91.9 fL (80.0-100.0); Mean Platelet Volume 11.3 fL (9.4-12.4); Monocytes # (auto) 0.44 K/uL (0.11-0.59); Monocytes % (auto) 8.8 %; Neutrophils # (auto) 2.72 K/uL (1.40-6.50); Neutrophils % (auto) 54.5 %; Platelet Count 150 K/uL (130-400); RDW Coefficient of Variation 12.9 % (11.5-14.5); RDW Standard Deviation 42.5 fL (36.4-46.3); Red Blood Count 3.83 M/uL (4.20-5.40); White Blood Count 4.99 K/ul (4.8-10.8)
[2023-06-12 08:32] LABS: BUN Creatinine Ratio 16.1 (10-20); C Reactive Protein 0.98 mg/dl (0-0.5); Creatinine Clr Calc Pharmacy 127.7 ml/min; Est GFR (African American) 128.7 ml/min; Potassium 3.7 mmol/L (3.5-5.1)
[2023-06-12] MEDS: ENOXAPARIN INJ 40 MG/0.4 ML SYR SQ SCH (09:17)
[2023-06-12] MEDS: KETOROLAC TROMETHAMINE 15 MG/ML VIAL IV ONE (10:02)
--- NOTE | 2023-06-12 10:45 | Pharmacy Report ---
Pharmacy PK ABX Note - Date of Service June 12, 2023 - Assessment and Plan Assessment 48 year old F receiving ceftriaxone/vancomycin for treatment of facial cellulitis. Pertinent microbiologic data includes: blood cultures pending. Day # 1 of antimicrobial therapy. Plan Vancomycin * Loading dose: 2000 mg IV x 1 * Maintenance dose: 1250 mg IV every 8 hours * Regimen is predicted to achieve target AUC/LUAN of 400-600 mg/L.hr for initial 2 days * Random level 06/12 @ 1000 Pharmacy will continue to follow and will adjust dose/frequency as necessary. Thank you. Pharmacy has transitioned to AUC monitoring for vancomycin. AUC/LUAN is the preferred PK/PD target and is associated with decreased risk of nephrotoxicity compared to traditional trough targets.
--- NOTE | 2023-06-12 10:55 | Discharge Summary ---
Date of Service June 12, 2023 Admission HPI Per Admitting Provider Bayron Yates is a 48 year-old female without significant past medical history who presents to the ER for concern of left sided facial swelling and pain. She notes that she has had two days of pain above her left eyebrow, notes that she decided to go to the ED because her eyelid had swollen shut. She endorses pain with palpation above the left eyebrow, denies blurry vision or double vision, denies pain with eye movement, denies abdominal pain/nausea/vomiting/shortness of breath/body aches/chills/fever. She states she takes no prescription medications. Her son is present during encounter, translates some questions for the patient. ED Course: -CT, MRI of orbit -1x Ceftriaxone, Vancomycin Principal Diagnosis Periorbital cellulitis Discharge Exam Constitutional: in no acute distress, pleasant and normal affect, intact memory. Vitals as above. HEENT: No scleral injection or discharge. Moist mucous membranes.EOMI. PERRL. Neck: Supple. Trachea midline. Lungs: CTAB Cardiac: RRR. No murmurs. Abdomen: Bowel sounds present. Soft, nontender, and nondistended.No guarding. MSK: No cyanosis or clubbing. Skin: L eye with mild periorbital edema which is tender to palpation predominantly on superior lateral region. No obvious erythema. Much improved from previous exam. Neurologic: no focal deficits Discharge Data Allergies Allergy/AdvReac Type Severity Reaction Status Date / Time No Known Drug Allergies Allergy Verified 01/10/19 14:44 Consultations 06/12/23 06:00 ED Decision to Admit Stat Ordered Studies Laboratory Results WBC 4.99 K/ul (4.8-10.8) 06/12/23 07:56 RBC 3.83 M/uL (4.20-5.40) L 06/12/23 07:56 Hgb 11.7 g/dl (12.0-16.0) L 06/12/23 07:56 POC Hgb 11.9 g/dl (12.0-16.0) L 06/12/23 00:01 Hct 35.2 % (37.0-47.0) L 06/12/23 07:56 POC Hct 35 % (37-47) L 06/12/23 00:01 MCV 91.9 fL (80.0-100.0) 06/12/23 07:56 MCH 30.5 pg (25.0-34.0) 06/12/23 07:56 MCHC 33.2 g/dL (32.0-36.0) 06/12/23 07:56 RDW Std Deviation 42.5 fL (36.4-46.3) 06/12/23 07:56 RDW Coeff of Gideon 12.9 % (11.5-14.5) 06/12/23 07:56 Plt Count 150 K/uL (130-400) 06/12/23 07:56 MPV 11.3 fL (9.4-12.4) 06/12/23 07:56 Immature Gran % (Auto) 0.2 % 06/12/23 07:56 Neut % (Auto) 54.5 % 06/12/23 07:56 Lymph % (Auto) 31.9 % 06/12/23 07:56 [place] % (Auto) 8.8 % 06/12/23 07:56 Eos % (Auto) 4.0 % 06/12/23 07:56 Baso % (Auto) 0.6 % 06/12/23 07:56 Neut # (Auto) 2.72 K/uL (1.40-6.50) 06/12/23 07:56 Lymph # (Auto) 1.59 K/uL (1.20-3.40) 06/12/23 07:56 [place] # (Auto) 0.44 K/uL (0.11-0.59) 06/12/23 07:56 Eos # (Auto) 0.20 K/uL (0.00-0.50) 06/12/23 07:56 Baso # (Auto) 0.03 K/uL (0.00-0.20) 06/12/23 07:56 Immature Gran # (Auto) 0.01 K/uL (0.01-0.20) 06/12/23 07:56 ESR 11 mm/hr (0-20) 06/11/23 23:46 POC Sodium 142 mmol/L (135-144) 06/12/23 00:01 Sodium 140 mmol/L (136-145) 06/12/23 07:56 POC Potassium 3.7 mmol/L (3.3-5.0) 06/12/23 00:01 Potassium 3.7 mmol/L (3.5-5.1) 06/12/23 07:56 POC Chloride 105 mmol/L (101-112) 06/12/23 00:01 Chloride 108 mmol/L (98-107) H 06/12/23 07:56 Carbon Dioxide 26 mmol/L (21-32) 06/12/23 07:56 POC Total CO2 23 mmol/L (24-31) L 06/12/23 00:01 Anion Gap 6 (3-11) 06/12/23 07:56 POC Anion Gap 18.0 mmol/L (16-25) 06/12/23 00:01 POC BUN 11 mg/dl (7-18) 06/12/23 00:01 BUN 9 mg/dl (6-23) 06/12/23 07:56 Creatinine 0.56 mg/dl (0.6-1.2) L 06/12/23 07:56 POC Creatinine 0.6 mg/dl (0.6-1.3) 06/12/23 00:01 Est Cr Clr Drug Dosing 127.7 ml/min 06/12/23 07:56 Est GFR ( Amer) 128.7 ml/min 06/12/23 07:56 Est GFR (Non-Af Amer) 111.0 ml/min 06/12/23 07:56 BUN/Creatinine Ratio 16.1 (10-20) 06/12/23 07:56 Glucose 102 mg/dl (70-99(Fasting)) H 06/12/23 07:56 POC Glucose (other) 104 mg/dl (70-99) H 06/12/23 00:01 Lactate 1.4 mmol/L (0.4-2.0) 06/11/23 23:50 Calcium 8.0 mg/dl (8.6-10.3) L 06/12/23 07:56 POC Ioniz Calcium Peña 1.14 mmol/l (1.12-1.32) 06/12/23 00:01 Magnesium 2.1 mg/dl (1.7-2.4) 06/11/23 23:46 Total Bilirubin 0.6 mg/dl (0.2-1.0) 06/11/23 23:46 AST 20 U/L (13-39) 06/11/23 23:46 ALT 23 U/L (7-52) 06/11/23 23:46 Alkaline Phosphatase 46 U/L (34-104) 06/11/23 23:46 C-Reactive Protein 0.98 mg/dl (0-0.5) H 06/12/23 07:56 Total Protein 7.0 gm/dl (6.0-8.3) 06/11/23 23:46 Albumin 4.3 gm/dl (3.4-5.0) 06/11/23 23:46 Globulin 2.7 gm/dl (2.5-4.0) 06/11/23 23:46 Albumin/Globulin Ratio 1.6 (0.9-2) 06/11/23 23:46 Procalcitonin < 0.02 ng/ml (0-0.5) 06/11/23 23:[address] 06/11/23 23:36 Exam(s): CT FACIAL With Contrast IV Amt: 90 ML EXAM: CT Head and Maxillofacial With Intravenous Contrast CLINICAL HISTORY: Reason for exam: left periorbital/supraorbital edema/erythema. TECHNIQUE: Axial computed tomography images of the head/brain and face with intravenous contrast. CTDI is 36.26 mGy and DLP is 619.22 mGy-cm. Automated exposure control was utilized for the study. A dose lowering technique was utilized adhering to the principles of ALARA. CONTRAST: Patient received 90 ML of IV contrast COMPARISON: No relevant prior studies available. FINDINGS: Brain: Unremarkable. No hemorrhage. No edema. Normal enhancement. Ventricles: Unremarkable. No ventriculomegaly. Bones/joints: No acute fracture. Soft tissues: Prominent cervical lymph nodes. Sinuses: Unremarkable as visualized. No acute sinusitis. Mastoid air cells: Unremarkable as visualized. No mastoid effusion. Orbits: There is moderate left periorbital edema and subcutaneous fat stranding primarily within the preseptal soft tissues. There is mild post septal soft tissue fat stranding in the left orbit. IMPRESSION: Moderate left periorbital edema and subcutaneous fat stranding without evidence of abscess or fluid collection. There is mild post septal fat stranding. Electronically signed by: Mely Patton MD 06/12/23 01:17 AM Orbit MRI 06/12/23 01:41 Exam(s): MRI ORBITS IV Amt: 8.5ml gadavist EXAM: MR Orbits With Intravenous Contrast CLINICAL HISTORY: Left periorbital edema, post-septal edema. TECHNIQUE: Multiplanar magnetic resonance images of the orbits with intravenous contrast. CONTRAST: Patient received 8.5ml gadavist of IV contrast COMPARISON: CT facial bones 06/12/2023. FINDINGS: Redemonstrated left frontal and periorbital subcutaneous soft tissue swelling and edema with enhancement. Preseptal soft tissue swelling and enhancement. No evidence for intraorbital edema/soft tissue swelling and enhancement. The left globe and extraocular muscles are intact. The extraconal retroconal fat is intact. The optic nerve and optic nerve sheath complex are unremarkable without abnormal normal enhancement or edema. Optic chiasm is unremarkable. No intraorbital mass or vascularity is present. Right orbit is unremarkable. Paranasal sinuses are clear. Limited images of the cranial contents demonstrates a partially empty sella. IMPRESSION: Left frontal supraorbital soft tissue swelling and edema. Preseptal soft tissue swelling/inflammation without evidence for intraorbital involvement. Electronically signed by: Garo Reed M.D. 06/12/23 05:49 AM Hospital Course (1) Cellulitis of face: 48 yo female without significant past medical history who presents to the ER for concern of left sided facial swelling and pain. Preseptal Cellulitis of Left Eye -CT: Moderate left periorbital edema and subcutaneous fat stranding without evidence of abscess or fluid collection. There is mild post septal fat stranding. -MRI: Left frontal supraorbital soft tissue swelling and edema. Preseptal soft tissue swelling/inflammation without evidence for intraorbital involvement. -Received methylprednisone, vancomycin, Ceftriaxone in ED --> much improvement overnight. -MRSA nares neg -no further indication for steroids, d/c'd -okay to discharge on Augmentin 875mg bid x7 days - return if symptoms return/worsen, especially if visual symptoms present -NSAIDs/Tylenol as needed for inflammation/pain -f/u PCP (2) Preseptal cellulitis of left eye: Total Time Total Time Spent Total Time Spent (In Minutes): 30 Discharge Plan Discharge Items Patient Disposition: Home - Self-Care Reason For Visit: FACIAL CELLULITIS Discharge Diagnosis: Periorbital Cellulitis Activity: Per Instructions section Non-emergency contact: Primary Care Provider Call non-emergency contact if: you have any medication questions Follow-up/Referrals: Kerrie Bolton [Primary Care Provider] - Diet: Regular Addtl Attending Provider Instructions: While in the hospital we treated you with IV antibiotics and saw significant improvement with your infection. We will continue treating you with antibiotics in the outpatient setting. New Medications: -Augmentin 875mg twice a day for 7 days (first dose on evening of 06/12/2023) -Over the counter NSAIDs (advil, motrin, aleve) and/or tylenol as needed for pain and swelling You should follow up with your primary care provider this upcoming week. If pain/swelling/redness worsen or you experience difficulty with vision contact a medical provider immediately or return to the ED. Pending Studies at Discharge: Yes (Blood cx) Stand-Alone Forms: My [employer], Smoking Cessation Medications and DC Order Prescriptions: New amoxicillin-pot clavulanate 875-125 mg tablet 1 tab PO BID 7 Days Qty: 14 0RF Rx Instructions: next dose evening of 06/12/23 Discharge Orders: Discharge Order (Routine); Ordered 06/12/23 Ordered By: Ricardo De Anda Admission Data Admit Date/Time: 06/12/23 06:07 Attending Provider: Libby Millan Admit Provider: Karlee Dc Primary Care Provider: Kerrie Bolton Other Providers: jJ Lemos Other Interventions: Discharge Summary Assessment (RN) Last Done: 06/12/23 13:25 Supervising Physician Co-Signing Physician Notes I personally examined the patient and verified all [place] points of history and exam, discussed case, and agree with decision making with Dr. De Anda Overall patient reports she is starting to note some improvement in the pain and swelling surrounding her left eye. She denies any vision concernsspecifically denies any blurred vision, double vision, or complete loss of vision. She denies any pain with extraocular movements. Denies any fevers or chills. Denies any nausea/vomiting, chest pain, shortness of breath. Otherwise she feels her usual baseline health. Vitals reviewed and within normal limits. On exam, generally nontoxic- appearing, in no acute distress. HEENT with mild erythema and edema surrounding her left periorbital region. Able to open eyes fully with EOMI and PERRL. No pain with EOM. Mild tenderness to palpation surrounding her periorbital region. No obvious abrasions/wounds. Heart regular rate and rhythm, lungs clear to auscultation bilaterally, abdomen soft and nontender. No focal neurologic deficits. Labs reviewed from this morning with mild decrease in her hemoglobin, no leukocytosis, unremarkable BMP with mildly elevated CRP to 0.98. Nasal MRSA screen obtained today negative. Facial CT with moderate left periorbital edema and subcutaneous fat stranding without evidence of abscess or fluid collection, mild peau septal fat stranding. Orbital MRI with left frontal supraorbital soft tissue swelling and edema. Preseptal soft tissue swelling/inflammation without evidence for intraorbital involvement. Very pleasant 48-year-old female who presents for a few days of progressive left periorbital swelling, pain, and difficulty with opening her eye due to eyelid being swollen shut with findings consistent with preseptal cellulitis of her left eye/left facial cellulitis. Labs and imaging as noted above. She received methylprednisolone, vancomycin, and ceftriaxone in the ED with improvement overnight. Patient desires discharge home today. Given MRSA nares negative, will discharge on p.o. antibiotics without MRSA coverage. Transition to Augmentin twice daily for 7 days with return precautions. Okay for OTC NSAIDs/Tylenol as needed for inflammation and pain. Close follow up with PCP recommended. I personally spent over 45 minutes reviewing previous notes, reviewing prior test results, obtaining a history, conducting physical examination, reviewing medication reconciliation. Resident Activity Tracking Resident Involvement: Resident Care Provided Care Provided: Adult [facility] Medicine
[2023-06-12] MEDS: VANCOMYCIN HCL 1,250 MG in SODIUM CHLORIDE 0.9% 250 ML IV SCH (12:24)
--- NOTE | 2023-06-12 13:33 | Billing Data ---
Date of Service June 12, 2023 Coding Level of Care Code 53029 IN/OBS CONSULT LVL 5,80M
--- NOTE | 2023-06-12 15:44 | Billing Data ---
Date of Service June 12, 2023 Coding Level of Care Code 63198 INT INP/OBS CARE
[2023-06-13] MEDS ORDERED: cefTRIAXone SODIUM 2,000 MG in DEXTROSE 5 % MINI-B 50 ML IV SCH (02:00)
[2023-06-13] MEDS ORDERED: VANCOMYCIN LEVEL ONE (10:00)
== END 2023-06-12 15:14 | disposition home or self-care (01) | DRG 603 ==
LOC: SUATTDRO → ED 22:24 → SUATTDRO 06-12 06:07 → EDINP 06-12 06:07